=== PATIENT | female | born 1945 | race Caucasian/White ===

== ENCOUNTER 2018-04-19 14:57 | Inpatient (IN) | payer MEDICARE ==
[~2018-04-19] VITALS: Ht 154.9 cm; Wt 108.9 kg
--- OUTSIDE RECORDS SUMMARY | 2018-04-19 14:59 | XMS REPORT | Clinical Summary ---
Author Author RAMILA [facility] Address Unknown Phone Unavailable Care Team Providers Care Scrap Yard Worker Name Role Phone PCP Unavailable Allergies Comments Active Allergy Reactions Severity Noted Date Codeine Itching High 03/19/2009 Medications End Date Status Medication Sig Dispensed Refills Start Date Active atenolol (TENORMIN) 100 TAKE ONE 0 11/13/201 MG tablet TABLET BY 8 MOUTH EVERY DAY (DISCONTINUE METOPROLOL SUCCINATE 100MG) Active lisinopril-hydroCHLOROthi TAKE ONE 0 azide TABLET BY 8 (PRINZIDE,ZESTORETIC) MOUTH EVERY 20-25 mg per tablet DAY Active methotrexate sodium 2.5 TAKE 8 0 09/24/201 mg DsPk TABLETS BY 8 MOUTH ONCE A WEEK Active montelukast (SINGULAIR) Take 10 mg by 0 10 mg tablet mouth. 8 Active hydroxychloroquine Take 200 mg 0 (PLAQUENIL) 200 mg tablet by mouth. 8 Active fluticasone (FLONASE) 50 1-2 sprays. 0 mcg/actuation nasal spray 6 Active folic acid (FOLVITE) 1 MG TAKE ONE 0 201 tablet TABLET BY 9 MOUTH EVERY DAY Active azelastine (ASTELIN) 137 2 puffs in 0 mcg (0.1 %) nasal spray each nostril 8 twice a day Active predniSONE (DELTASONE) 10 Take 10 mg by 0 12/07/ MG tablet mouth. 8 Active omeprazole (PRILOSEC) 40 TAKE ONE 0 MG capsule CAPSULE BY 9 MOUTH EVERY DAY 04/28/2018 Active traMADol (ULTRAM) 50 mg Take 1 tablet 20 tablet 0 tablet (50 mg total) 9 by mouth every 6 (six) hours as needed for up to 10 days. Max Daily Amount: 200 mg Active Problems Not on file Encounters Care Team Description Date Type Specialty Armando Gutierrez MD Fall, initial encounter (Primary Dx); Sprain and strain of left ankle; Closed fracture of distal end of left radius, unspecified fracture morphology, initial encounter; Essential hypertension; Other specified rheumatoid arthritis, unspecified site ([facility]) 04/18/2018 Emergency Emergency Medicine 04/18/2018 Travel after 04/18/2017 Social History Date Tobacco Use Types Packs/Day Years Used Never Smoker Smokeless Tobacco: Never Used Alcohol Use Drinks/Week oz/Week Comments No Alcohol Habits Answer Date Recorded How often do you have a drink containing alcohol? Never 04/18/2018 How many drinks containing alcohol do you have on Not asked a typical day when you are drinking? How often do you have six or more drinks on one Not asked occasion? Sex Assigned at Date Recorded Not on file Industry Job Start Date Occupation Not on file Not on file Not on file Travel End Travel History Travel Start No recent travel history available. Last Filed Vital Signs Time Taken Vital Sign Reading 04/18/2018 1:45 PM CDT Blood Pressure 139/70 04/18/2018 1:45 PM CDT Pulse 68 04/18/2018 12:24 PM CDT Temperature 36.3 C (97.3 F) 04/18/2018 1:45 PM CDT Respiratory Rate 17 04/18/2018 1:45 PM CDT Oxygen Saturation 94% - Inhaled Oxygen - Concentration 04/18/2018 12:24 PM CDT Weight 98.4 kg (217 lb) 04/18/2018 12:24 PM CDT Height 154.9 cm (5' 1") 04/18/2018 12:24 PM CDT Body Mass Index 41 Plan of Treatment Not on file Procedures Comments Procedure Name Priority Date/Time Associated Diagnosis XR WRIST LEFT COMPLETE STAT 04/18/2018 (MIN 3 VIEWS) 1:00 PM CDT XR ANKLE 3 VIEWS RIGHT STAT 04/18/2018 12:55 PM CDT after 04/18/2017 Results * XR wrist complete 3 views min left (04/18/2018 1:00 PM CDT) Narrative Performed At FINAL REPORT [facility] Left wrist, four images HISTORY: Pain COMPARISON: None IMPRESSION: Soft tissue swelling at the wrist. Oblique fracture through the distal radius with minimal displacement. No definite articular surface extension. Remote ulnar styloid fracture. Alignment appears normal. Signed: Donaldo Garcia MD Report Verified Date/Time:04/18/2018 13:17:58 Reading Location: [address] Transitional Reading Room Procedure Note Interface, External Ris In - 04/18/2018 1:20 PM CDT FINAL REPORT Left wrist, four images HISTORY: Pain COMPARISON: None IMPRESSION: Soft tissue swelling at the wrist. Oblique fracture through the distal radius with minimal displacement. No definite articular surface extension. Remote ulnar styloid fracture. Alignment appears normal. Signed: Donaldo Garcia MD Report Verified Date/Time: 04/18/2018 13:17:58 Reading Location: [address] Transitional Reading Room Performing Organization Address [facility]/[employer] Phone Number GE [facility] * XR ankle 3 views right (04/18/2018 12:55 PM CDT) Narrative Performed At FINAL REPORT [facility] Right ankle, three images HISTORY: Trauma COMPARISON: None IMPRESSION: No fracture or dislocation evident. Circumferential soft tissue swelling at the ankle. Degenerative changes in the midfoot. Signed: Donaldo Garcia MD Report Verified Date/Time:04/18/2018 13:15:05 Reading Location: [address] Transitional Reading Room Procedure Note Interface, External Ris In - 04/18/2018 1:17 PM CDT FINAL REPORT Right ankle, three images HISTORY: Trauma COMPARISON: None IMPRESSION: No fracture or dislocation evident. Circumferential soft tissue swelling at the ankle. Degenerative changes in the midfoot. Signed: Donaldo Garcia MD Report Verified Date/Time: 04/18/2018 13:15:05 Reading Location: [address] Transitional Reading Room Performing Organization Address [facility]/Zipcode Phone Number GE RIS after 04/18/2017 Insurance Payer Benefit Subscriber ID Type Phone Address Plan / Group [facility] x[facility]xx MEDICARE ADV
--- OUTSIDE RECORDS SUMMARY | 2018-04-19 14:59 | XMS REPORT ---
Author Author [facility] Address Unknown Phone Unavailable Care Team Providers Care Central Scheduler Name Role Phone Unavailable Unavailable Problems This patient has no known problems. Allergies, Adverse Reactions, Alerts This patient has no known allergies or adverse reactions. Medications This patient has no known medications. Results Test Description Test Time Test Comments Text Results Atomic Results Result Comments RAD, WRIST, LEFT, COMPLETE (MIN 3 VIEWS) 2018-04-18 13:17:00 Reason for exam:- >WRIST PAINShould this be performed at the bedside?->No FINAL REPORT Left wrist, four images HISTORY: Pain COMPARISON: None IMPRESSION:Soft tissue swelling at the wrist. Oblique fracture through the distal radius with minimal displacement. No definite articular surface extension. Remote ulnar styloid fracture. Alignment appears normal. Signed: Donaldo Cantor Verified Date/Time: 04/18/2018 13:17:58 Reading Location: [address] Transitional Reading Room , ANKLE, MIN 3 VIEWS, RIGHT 2018-04-18 13:15:00 Reason for exam:->traumaShould this be performed at the bedside?->No FINAL REPORT Right ankle, three images HISTORY: Trauma COMPARISON: None IMPRESSION:No fracture or dislocation evident. Circumferential soft tissue swelling at the ankle. Degene rative changes in the midfoot. Signed: Donaldo Cantor Verified Date/Time: 04/18/2018 13:15:05 Reading Location: [facility] B1 C013T Transitional Reading Room
[2018-04-19 15:51] LABS: BASOPHILS # (AUTO) 0.1 (0.0-0.1); BASOPHILS % 0.6 % (0.0-1.0); EOSINOPHILS # (AUTO) 0.3 (0.0-0.4); EOSINOPHILS % 3.1 % (0.0-6.0); HEMATOCRIT 39.9 % (34.2-44.1); HEMOGLOBIN 13.7 g/dL (12.0-16.0); LYMPHOCYTES # (AUTO) 1.8 (1.0-3.2); LYMPHOCYTES % 17.6 % (18.0-39.1); MEAN CORPUSCULAR HEMOGLOBIN 31.6 pg (28-32); MEAN CORPUSCULAR HGB CONC 34.3 g/dL (31-35); MEAN CORPUSCULAR VOLUME 91.9 fL (81-99); NEUTROPHILS # (AUTO) 6.8 (2.1-6.9); NEUTROPHILS % 68.2 % (38.7-80.0); PLATELET COUNT 269 x10e3/uL (140-360); RED BLOOD COUNT 4.34 x10e6/uL (3.6-5.1); RED CELL DISTRIBUTION WIDTH 13.7 % (11.7-14.4)
[2018-04-19 15:55] LABS: BILIRUBIN,URINE NEGATIVE (NEGATIVE); CLARITY,URINE SL CLOUDY (CLEAR); COLOR,URINE YELLOW (YELLOW); KETONES,URINE NEGATIVE (NEGATIVE); LEUKOCYTE ESTERASE ,URINE TRACE (NEGATIVE); NITRITE,URINE NEGATIVE (NEGATIVE); PROTEIN,URINE DIPSTICK TRACE (NEGATIVE); URINE UROBILINOGEN 0.2 mg/dL (0.2 - 1)
[2018-04-19 15:57] LABS: INR 0.94; PARTIAL THROMBOPLASTIN TIME 34.2 seconds (23.8-35.5); PROTHROMBIN TIME 13.1 seconds (11.9-14.5)
[2018-04-19 16:08] LABS: ALANINE AMINOTRANSFERASE 15 IU/L (0-55); ALBUMIN 3.8 g/dL (3.5-5.0); ALBUMIN/GLOBULIN RATIO 1.1 (0.8-2.0); ALKALINE PHOSPHATASE 114 IU/L (40-150); AMYLASE 73 U/L (25-125); ANION GAP 12.6 mmol/L (8-16); BLOOD UREA NITROGEN 16 mg/dL (7-26); BUN/CREATININE RATIO 19 (6-25); CALCIUM 9.9 mg/dL (8.4-10.2); CARBON DIOXIDE 29 mmol/L (22-29); CHLORIDE 96 mmol/L (98-107); CREATININE, SERUM 0.84 mg/dL (0.57-1.11); EST GLOMERULAR FILTRATION RATE > 60 ML/MIN (60-); GLUCOSE 107 mg/dL (74-118); LIPASE 29 U/L (8-78); POTASSIUM 3.6 mmol/L (3.5-5.1); SODIUM 134 mmol/L (136-145)
[2018-04-19 16:09] LABS: AMORPHOUS SEDIMENT,URINE MODERATE (FEW); BACTERIA,URINE MODERATE /HPF; EPITHELIAL CELLS,URINE MODERATE /LPF
[2018-04-19] MEDS ORDERED: IOPAMIDOL 370 MG/ML 200 ML INFUS..BTL INJ ONE (18:48)
[2018-04-19] MEDS ORDERED: SODIUM CHLORIDE 0.9% 50ML 50 ML ONE (18:48)
--- NOTE | 2018-04-19 19:05 | NUR ---
REPORT GIVEN TO RONALD LEVIN
[2018-04-19] MEDS ORDERED: CEFTRIAXONE SOD 1 GM/NS 50 ML 50 ML IV ONE (19:30)
[2018-04-19] MEDS ORDERED: ONDANSETRON HCL INJ 2MG/ML 2ML 2 MG/ML VIAL IV ONE (19:45)
--- NOTE | 2018-04-19 20:55 | Diagnostic Imaging Report ---
EXAM: CT Abdomen and Pelvis WITH contrast INDICATION: ^bilateral lower abdominal pain and rectal bleeding COMPARISON: None. TECHNIQUE: Abdomen and pelvis were scanned utilizing a multidetector helical scanner from the lung base to the pubic symphysis after administration of IV contrast. Coronal and sagittal reformations were obtained. Routine protocol was performed. Scan was performed when during portal venous phase. IV CONTRAST: 100 mL of Isovue 370 ORAL CONTRAST: Water COMPLICATIONS: None RADIATION DOSE: Total DLP: 784.4 mGy*cm Estimated effective dose: (DLP x 0.015 x size factor) mSv CTDIvol has been reviewed. It is below the limits set by the Radiation Protocol Committee (RPC). Dose modulation, iterative reconstruction, and/or weight based adjustment of the mA/kV was utilized to reduce the radiation dose to as low as reasonably achievable. FINDINGS: LINES and TUBES: None. LOWER THORAX: Diffuse ground glass opacities with subpleural reticulation, likely component of the interstitial lung disease. HEPATOBILIARY: No focal hepatic lesions. No biliary ductal dilation. GALLBLADDER: There are cholecystectomy clips. SPLEEN: No splenomegaly. PANCREAS: No focal masses or ductal dilatation. ADRENALS: No adrenal nodules KIDNEYS/URETERS: Kidneys enhance symmetrically. No hydronephrosis. 1.5 cm cyst in the posterior superior pole of the right kidney. There are additional other smaller cysts in bilateral kidneys. No stones. GI TRACT: Mild subtle inflammatory changes in the sigmoid colon without a discrete diverticula. No abnormal distention, wall thickening, or evidence of bowel obstruction. Stomach is decompressed with mild wall thickening, likely related to underdistention. Appendix is normal. PELVIC ORGANS/BLADDER: Uterus surgically absent. Both ovaries are not identified. Bladder is decompressed. LYMPH NODES: No lymphadenopathy. VESSELS: Unremarkable. PERITONEUM / RETROPERITONEUM: No free air or fluid. BONES: There are degenerative changes in the lumbar spine. SOFT TISSUES: Unremarkable. IMPRESSION: 1. Sigmoid colitis. No discretely inflamed diverticula. Given patient's age, recommend colonoscopy after resolution of inflammation. 2. Findings of interstitial lung disease. Signed by: Dr. Rip Mandel M.D. on 04/19/2018 8:52 PM
--- OUTSIDE RECORDS SUMMARY | 2018-04-19 23:01 | XMS REPORT | Clinical Summary ---
Author Author RAMILA [facility] Address Unknown Phone Unavailable Care Team Providers Care Human Resources Manager Name Role Phone PCP Unavailable Allergies Comments [...] hypertension; Other specified rheumatoid arthritis, unspecified site ([facility]) 04/18/2018 Emergency Emergency Medicine 04/18/2018 Travel after [...] PM CDT) Narrative Performed At FINAL REPORT [facility] Left wrist, four images HISTORY: Pain COMPARISON: None IMPRESSION: Soft tissue swelling at the wrist. Oblique fracture through the distal radius with minimal displacement. No definite articular surface extension. Remote ulnar styloid fracture. Alignment appears normal. Signed: Donaldo Garcia MD Report Verified Date/Time:04/18/2018 13:17:58 Reading Location: [address] Transitional Reading Room Procedure Note Interface, [...] Report Verified Date/Time: 04/18/2018 13:17:58 Reading Location: [address] Transitional Reading Room Performing Organization Address [facility]/[employer] Phone Number GE RIS * XR ankle 3 views right (04/18/2018 12:55 PM CDT) Narrative Performed At FINAL REPORT [facility] Right ankle, three images HISTORY: Trauma COMPARISON: None IMPRESSION: No fracture or dislocation evident. Circumferential soft tissue swelling at the ankle. Degenerative changes in the midfoot. Signed: Donaldo Garcia MD Report Verified Date/Time:04/18/2018 13:15:05 Reading Location: [address] Transitional Reading Room Procedure Note Interface, External Ris In - 04/18/2018 1:17 PM CDT FINAL REPORT Right ankle, three images HISTORY: Trauma COMPARISON: None IMPRESSION: No fracture or dislocation evident. Circumferential soft tissue swelling at the ankle. Degenerative changes in the midfoot. Signed: Donaldo Garcia MD Report Verified Date/Time: 04/18/2018 13:15:05 Reading Location: [address] Transitional Reading Room Performing Organization Address [facility]/Zipcode Phone Number GE RIS after 04/18/2017 Insurance Payer Benefit Subscriber ID Type Phone Address Plan / Group [facility] xxxxxxxxxxx MEDICARE ADV
[2018-04-20] VITALS (10 sets, daily range): BP systolic 114–166; BP diastolic 58–73
[2018-04-20] MEDS: SODIUM CHLORIDE 0.9% 1000ML 1,000 ML IV SCH ×2 (00:05→08:35)
[2018-04-20] MEDS: LEVOFLOXACIN 500MG/D5W 100ML 100 ML IV SCH ×2 (00:05→22:35)
--- NOTE | 2018-04-20 00:14 | NUR ---
PT ARRIVED FROM ER VIA WHEELCHAIR. NO NEEDS AT THIS TIME. PT A SPLINT WITH NANI WRAP TO HER LEFT ARM FROM FALL THIS WEEKEED. PER PT AND REPORT, SHE HAS A FRACTURE TO HER LEFT ARM. CURRENTLY DENIES ANY ABD PAIN OR DISCOMFORT. NO NEEDS AT THIS TIME. LEVAQUIN INFUSING. FLAGYL TO INFUSE AFTER LEVAQUIN IN FINISHED. NO DISTRESS.
[2018-04-20 00:29] LABS: HEMATOCRIT 39.2 % (34.2-44.1); HEMOGLOBIN 13.4 g/dL (12.0-16.0)
[2018-04-20] MEDS: METRONIDAZOLE 500MG/NS 100ML 100 ML IV SCH ×6 (01:23→21:34)
[2018-04-20] MEDS: ONDANSETRON HCL INJ 2MG/ML 2ML 2 MG/ML VIAL IV PRN (04:43)
[2018-04-20 07:21] LABS: HEMATOCRIT 37.2 % (34.2-44.1); HEMOGLOBIN 12.6 g/dL (12.0-16.0)
[2018-04-20 07:36] LABS: ALANINE AMINOTRANSFERASE 15 IU/L (0-55); ALBUMIN 3.5 g/dL (3.5-5.0); ALBUMIN/GLOBULIN RATIO 1.1 (0.8-2.0); ALKALINE PHOSPHATASE 100 IU/L (40-150); ANION GAP 11.4 mmol/L (8-16); BLOOD UREA NITROGEN 14 mg/dL (7-26); BUN/CREATININE RATIO 17 (6-25); CALCIUM 8.5 mg/dL (8.4-10.2); CARBON DIOXIDE 26 mmol/L (22-29); CHLORIDE 97 mmol/L (98-107); CREATININE, SERUM 0.81 mg/dL (0.57-1.11); EST GLOMERULAR FILTRATION RATE > 60 ML/MIN (60-); GLUCOSE 109 mg/dL (74-118); POTASSIUM 3.4 mmol/L (3.5-5.1); SODIUM 131 mmol/L (136-145)
--- NOTE | 2018-04-20 07:47 | NUR ---
Patient alert and responsive, ambulatory, sitting by edge of bed and in no apparent distress, denies abdl pain and stated had drops of blood last night on using the bathroom, splint to left wrist and will monitor. Call to attending to report K+ level and waiting for call back.
[2018-04-20] MEDS ORDERED: PANTOPRAZOLE 40 MG 10ML VIAL IV SCH (09:00)
[2018-04-20 11:56] LABS: HEMATOCRIT 37.5 % (34.2-44.1)
[2018-04-20] MEDS ORDERED: FOLIC ACID1 MG PO (12:29)
[2018-04-20] MEDS ORDERED: VITAMIN D32000 UNI1 PO (12:29)
[2018-04-20] MEDS ORDERED: ATENOLOL50 MG PO (12:29)
[2018-04-20] MEDS ORDERED: HYDROCHLOROTHIA25 MG PO (12:29)
[2018-04-20] MEDS ORDERED: MONTELUKAST SOD10 MG PO (12:29)
[2018-04-20] MEDS ORDERED: METHOTREXATE2.5 MG PO (12:29)
[2018-04-20] MEDS ORDERED: HYDROXYCHLOROQ200 MG PO (12:29)
[2018-04-20] MEDS ORDERED: OMEPRAZOLE40 MG PO (12:29)
[2018-04-20] MEDS ORDERED: AZELASTINE137 MCG/0. (12:29)
[2018-04-20] MEDS ORDERED: LISINOPRIL10 MG PO (12:29)
[2018-04-20] MEDS ORDERED: POTASSIUM CHLORIDE 20 MEQ TAB CR PO ONE (14:00)
[2018-04-20] MEDS: AZELASTINE HCL 137 MCG NASAL SPRAY NS SCH (17:00)
--- NOTE | 2018-04-20 19:14 | NUR ---
BEDSIDE SHIFT REPORT PERFORMED WITH Darion PEREZ RN. RECEIVED PT SITTING IN CHAIR, AAOX3, RR EVEN AND NON-LABORED, ON RA. NO S/SX OF DISTRESS NOTED. LEFT PT SITTING IN CHAIR, CALL LIGHT AND PHONE WITHIN REACH.
[2018-04-20] MEDS: MONTELUKAST SODIUM 10 MG TAB PO SCH (20:17)
[2018-04-21] VITALS (8 sets, daily range): BP systolic 113–141; BP diastolic 57–72
[2018-04-21] MEDS: ONDANSETRON HCL INJ 2MG/ML 2ML 2 MG/ML VIAL IV PRN ×2 (00:19→22:08)
[2018-04-21] MEDS: METRONIDAZOLE 500MG/NS 100ML 100 ML IV SCH ×3 (05:10→21:14)
--- NOTE | 2018-04-21 07:18 | NUR ---
Rcvd patient in report this am. Patient is asleep in bed at this time. No s/s of distress noted
[2018-04-21] MEDS: AZELASTINE HCL 137 MCG NASAL SPRAY NS SCH ×2 (09:08→17:42)
[2018-04-21] MEDS: FOLIC ACID 1 MG TAB PO SCH (09:08)
[2018-04-21] MEDS: CHOLECALCIFEROL 1,000 UNIT TAB PO SCH (09:08)
--- NOTE | 2018-04-21 09:46 | NUR ---
IMM EXPLAINED, SIGNED BY PT AND PLACED IN CHART COPY TO PT IN CARE TRANSITION FOLDER
--- NOTE | 2018-04-21 16:49 | Diagnostic Imaging Report ---
EXAMINATION: CHEST SINGLE (PORTABLE) INDICATION: Congestion. COMPARISON: CT abdomen/pelvis 04/19/2018. FINDINGS: TUBES and LINES: None. LUNGS: Lungs are not well inflated. There are bibasilar atelectasis. There are perihilar interstitial opacities. No evidence of lobar consolidation. PLEURA: No pleural effusion or pneumothorax. HEART AND MEDIASTINUM: The cardiomediastinal silhouette is unremarkable. BONES AND SOFT TISSUES: No acute osseous lesion. Soft tissues are unremarkable. UPPER ABDOMEN: No free air under the diaphragm. IMPRESSION: Low lung volumes with possible mild pulmonary interstitial edema. Patchy bibasilar opacities, likely atelectasis. Signed by: Dr. Loli Hoskins MD on 04/21/2018 4:46 PM
[2018-04-21] MEDS: MONTELUKAST SODIUM 10 MG TAB PO SCH (20:30)
--- NOTE | 2018-04-21 21:30 | NUR ---
ASSESSMENT DONE.NO RESP.DISTRESS.NEW IV STARTED TO R FOREARM #20G.PATENT.LYEING IN THE RECYLINER.LEFT ARM SUPPORTED WITH SPLINT.PHONE AND CALL LIGHT WITHIN REACH.INSTRUCTED TO CALL FOR ASSISTANCE NEEDED.
[2018-04-21] MEDS: LEVOFLOXACIN 500MG/D5W 100ML 100 ML IV SCH (22:07)
[2018-04-22] VITALS (7 sets, daily range): BP systolic 133–180; BP diastolic 60–81
[2018-04-22] MEDS: METRONIDAZOLE 500MG/NS 100ML 100 ML IV SCH ×2 (05:30→13:36)
--- NOTE | 2018-04-22 06:58 | NUR ---
REPORT GIVEN TO THE ONCOMING RN.WALKING ROUNDS DONE.STABLE CONDITION.
--- NOTE | 2018-04-22 07:25 | NUR ---
Rcvd patient in report this am. Patient is awake in recliner at this time. No s/s of distress noted
[2018-04-22] MEDS: CHOLECALCIFEROL 1,000 UNIT TAB PO SCH (08:10)
[2018-04-22] MEDS: FOLIC ACID 1 MG TAB PO SCH (08:10)
[2018-04-22] MEDS: AZELASTINE HCL 137 MCG NASAL SPRAY NS SCH ×2 (08:10→16:09)
[2018-04-22] MEDS ORDERED: LOPERAMIDE HCL 2 MG CAP PO ONE (15:15)
--- NOTE | 2018-04-22 15:18 | NUR ---
Blood pressure rechecked and noted at 160/80 on the right wrist. Patient states "I feel fine and i am just excited and want to go home."
--- NOTE | 2018-04-22 15:23 | NUR ---
Removed IV at this time from right forearm. Pressure dressing applied.
[2018-04-22] MEDS ORDERED: AUGMENTIN 875-1 EACH PO (15:49)
[2018-04-22] MEDS ORDERED: FLAGYL250 MG PO (15:50)
--- NOTE | 2018-04-22 17:29 | NUR ---
Patient discharged from facility to to home. Patient assisted out in wheelchair via staff. Reviewed all follow up appts, RX's given, and discharge paperwork reviewed.
--- NOTE | 2018-04-23 13:00 | Discharge Summary ---
PRIMARY CARE PHYSICIAN: Dr. Jesse Damon. FINAL DIAGNOSIS: Acute sigmoid colitis. SECONDARY DIAGNOSES: 1. Hyponatremia, stable. 2. 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 CONSULTANTS: None. PROCEDURES/STUDIES PERFORMED: CT of the abdomen and pelvis. HISTORY: Per H and P. HOSPITAL COURSE: The patient responded well to IV Levaquin and Flagyl. Her C difficile came back negative. However, the patient seemed to be tolerating Levaquin well; therefore, I will go ahead and send her home on Augmentin and Flagyl for another 7 days. Since her C difficile is negative, I will go ahead and give her 1 dose of imodium before she is discharged. The patient knows that she needs to follow up with the GI doctor afterwards. The patient was seen and examined today. It took 32 minutes total to discharge this patient. CONDITION ON DISCHARGE: Improved. DISCHARGE MEDICATIONS: Please see medication reconciliation form. [facility] MD CHARLOTTE Bedoya/OLENA /[id number] cc: [facility]
== END 2018-04-22 17:33 | disposition home or self-care (01) | DRG 392 ==
LOC: ER 14:57 → ERHOLD 22:59 → MED/SURG 04-20 00:14
PROVIDERS: ADMIT Internal Medicine; ATTEND Internal Medicine
DX: K52.9 Noninfective gastroenteritis and colitis, unspecified (principal); E87.1 Hypo-osmolality and hyponatremia; Z68.42 Body mass index [BMI] 45.0-49.9, adult; E86.0 Dehydration; M06.9 Rheumatoid arthritis, unspecified; E66.01 Morbid (severe) obesity due to excess calories; I10 Essential (primary) hypertension; E87.6 Hypokalemia; Z79.899 Other long term (current) drug therapy; Z88.5 Allergy status to narcotic agent
CPT/HCPCS: 36415; 71045; 74177; 80053; 81001; 82150; 82270; 83690; 85014; 85018; 85025; 85610; 85730; 86850; 86900; 87493; 99283; J0696; J1956; J2405; J7030; Q9967